=== PATIENT | female | born 1950 | race American Indian/Alaskan Native ===

== ENCOUNTER 2017-01-26 22:12 | Emergency (ER) | payer MEDICARE ==
[2017-01-26] MEDS ORDERED: PEPCID PO ONE (23:03)
[2017-01-26] MEDS ORDERED: DELTASONE PO ONE (23:07)
[2017-01-26] MEDS ORDERED: BENADRYL PO ONE (23:08)
--- NOTE | 2017-01-26 23:29 | Emergency Department Report ---
HPI - General Chief Complaint: Allergic Reaction - HPI HPI: 66-year-old female past medical history hypertension presents with complaint of hives on her body and arms since this afternoon which are getting progressively itchy ear and spreading. Patient is awake alert and oriented 3 not appear to be in acute distress is fully lucid awake alert and oriented, no audible wheezing or stridor. States she put on topical Benadryl and hives before coming to the ED. denies contact with any new medicines new cosmetics or new foods new pets denies any recent travel. ED Past Medical Hx - Past Medical History Previous Medical History?: Yes Hx Hypertension: Yes - Surgical History Past Surgical History?: Yes Additional Surgical History: HYSTERECTOMY / HEMMORHOIECTOMY / BREAST REDUCTION - Social History Smoking Status: Never Smoker Substance Use Type: None - Medications Home Medications: Home Medications Medication Instructions Recorded Confirmed Last Taken Type EPINEPHrine (NF) [Epipen (Nf)] 0.3 mg IM ONCE PRN #1 syringekit 01/27/17 Unknown Rx Famotidine [Pepcid] 20 mg PO BID PRN #14 tablet 01/27/17 Unknown Rx diphenhydrAMINE [Benadryl CAP] 25 mg PO Q8HR PRN #30 capsule 01/27/17 Unknown Rx predniSONE [Deltasone] 40 mg PO QDAY #10 tab 01/27/17 Unknown Rx ED Review of Systems ROS: Stated complaint: BODY RASH Other details as noted in HPI Constitutional: denies: chills, fever Eyes: denies: eye pain, eye discharge, vision change ENT: denies: ear pain, throat pain Respiratory: denies: cough, shortness of breath, wheezing Cardiovascular: denies: chest pain, palpitations Endocrine: no symptoms reported Gastrointestinal: denies: abdominal pain, nausea, diarrhea Genitourinary: denies: urgency, dysuria, discharge Musculoskeletal: denies: back pain, joint swelling, arthralgia Skin: as per HPI, rash. denies: lesions Neurological: denies: headache, weakness, paresthesias Psychiatric: denies: anxiety, depression Hematological/Lymphatic: denies: easy bleeding, easy bruising Physical Exam - Physical Exam Vital Signs: Vital Signs 01/26/17 22:31 Temperature 98.6 F Pulse Rate 82 Respiratory 20 Rate Blood Pressure 154/102 O2 Sat by Pulse 99 Oximetry General: General: Well appearing, well nourished, in no distress. Oriented x 3, normal mood and affect . Ambulating without difficulty. No audible wheezing or stridor Skin: Visible hives on both upper extremities and abdomen Head: Normocephalic, atraumatic, no visible or palpable masses, depressions, or scaring. Eyes: EOM intact, PERRL, Mouth: Oropharynx patent and open Mucous membranes moist, no mucosal lesions. Pharynx: Mucosa non-inflamed, no tonsillar hypertrophy or exudate Neck: Supple, without lesions, bruits, or adenopathy, thyroid non-enlarged and non-tender Heart: No cardiomegaly or thrills; regular rate and rhythm, no murmur or gallop Lungs: Clear to auscultation bilaterally Abdomen: Bowel sounds normal, no tenderness, organomegaly, masses, or hernia Back: Spine normal without deformity or tenderness, no CVA tenderness Musculoskeletal: Normal gait and station. No misalignment, asymmetry, crepitation, defects,tenderness, masses, effusions, decreased range of motion, instability, atrophy or abnormalstrength or tone in the head, neck, spine, ribs , pelvis or extremities. Neurologic: CN 2-12 normal. Sensation to pain, touch, and proprioception normal. DTRs normal in upper and lower extremities. No pathologic reflexes. ED Course Vital Signs 01/26/17 22:31 Temperature 98.6 F Pulse Rate 82 Respiratory 20 Rate Blood Pressure 154/102 O2 Sat by Pulse 99 Oximetry ED Medical Decision Making - Medical Decision Making A/P: Hives 1-Pepcid when necessary for hives, Benadryl when necessary for hives, prednisone course, 2-EpiPen when necessary for any signs of angioedema. I advised patient that if hives worsen or if she experiences any facial swelling or lip swelling to return to the ED immediately 3-patient's vital signs are stable 4-patient experienced relief / midl resoluation of hives and itching before discharge Critical care attestation.: If time is entered above; I have spent that time in minutes in the direct care of this critically ill patient, excluding procedure time. ED Disposition Clinical Impression: Hives Disposition: DC- TO HOME OR SELFCARE Is pt being admited?: No Does the pt Need Aspirin: No Condition: Stable Instructions: Epinephrine (Injection), Urticaria (ED), Allergies (ED) Prescriptions: diphenhydrAMINE [Benadryl CAP] 25 mg PO Q8HR PRN #30 capsule PRN Reason: Itching EPINEPHrine (NF) [Epipen (Nf)] 0.3 mg IM ONCE PRN #1 syringekit PRN Reason: Angioedema Famotidine [Pepcid] 20 mg PO BID PRN #14 tablet PRN Reason: Allergic Reaction predniSONE [Deltasone] 40 mg PO QDAY #10 tab Referrals: [facility] [Outside] - 3-5 Days [facility] [Outside] - 3-5 Days Forms: Accompanied Note, Work/School Release Form(ED) Time of Disposition: 00:42
[2017-01-26] MEDS ORDERED: TYLENOL ONE (23:44)
[2017-01-26] MEDS ORDERED: HCTZ ONE (23:47)
[2017-01-27] MEDS ORDERED: TYLENOL PO ONE (00:27)
[2017-01-27] MEDS ORDERED: HCTZ PO ONE (00:28)
[2017-01-27 01:04] VITALS: BP 162/84
== END 2017-01-27 01:04 | disposition home or self-care (01) ==
LOC: ED 22:12
DX: L50.9 Urticaria, unspecified (principal); I10 Essential (primary) hypertension; Z90.710 Acquired absence of both cervix and uterus
CPT/HCPCS: 93005; 93010; 99282; J7512